=== PATIENT | female | born 1990 | race Native Hawaiian/Other Pacific Islander ===

== ENCOUNTER 2017-04-20 22:39 | Emergency (ER) | payer OTHER ==
[~2017-04-20] VITALS: Ht 154.9 cm; Wt 74.8 kg
== END 2017-04-20 23:23 | disposition home or self-care (01) ==
LOC: ED 22:39
DX: R09.89 Other specified symptoms and signs involving the circulatory and respiratory systems (principal)
CPT/HCPCS: 99281

== ENCOUNTER 2017-07-06 13:45 | Outpatient (CLI) | payer OTHER ==
[2017-07-06 14:29] LABS: PLATELET COUNT 348 K/uL (152-353)
[2017-07-06 14:47] LABS: POTASSIUM 4.3 mmol/L (3.6-5.2); SODIUM 138 mmol/L (136-145)
== END 2017-07-06 19:12 | disposition home or self-care (01) ==
LOC: LAB 13:45
PROVIDERS: Nurse Practitioner Family
DX: R53.83 Other fatigue (principal); Z00.00 Encounter for general adult medical examination without abnormal findings; R53.81 Other malaise; F41.9 Anxiety disorder, unspecified
CPT/HCPCS: 80053; 80061; 83036; 84436; 84443; 85027

== ENCOUNTER 2018-03-15 08:41 | Outpatient (CLI) | payer OTHER ==
[2018-03-15 09:28] LABS: PLATELET COUNT 329 K/uL (152-353)
[2018-03-15 09:52] LABS: POTASSIUM 3.9 mmol/L (3.6-5.2)
== END 2018-03-15 21:12 | disposition home or self-care (01) ==
LOC: LABW 08:41
DX: R53.83 Other fatigue (principal); I10 Essential (primary) hypertension
CPT/HCPCS: 36415; 80053; 80061; 81000; 84443; 85027